=== PATIENT | female | born 1995 | race Hispanic/Latino ===

== ENCOUNTER 2018-10-29 07:31 | Day surgery (SDC) | payer MEDICAID ==
[2018-10-26 11:00] VITALS: BP 98/66
[2018-10-26 11:18] LABS: BASOPHILS % (AUTO) 0.8 % (0.0-5.0); EOSINOPHILS % (AUTO) 2.5 % (0.0-8.0); HEMATOCRIT 41.1 % (36-48); LYMPHOCYTES % (AUTO) 34.8 % (21.0-51.0); MEAN CORPUSCULAR HEMOGLOBIN 29.5 pg (27.0-33.0); MEAN CORPUSCULAR HGB CONC 33.7 g/dL (32.0-36.0); MEAN CORPUSCULAR VOLUME 87.8 fL (79-99); NEUTROPHILS % (AUTO) 52.9 % (40.0-77.0); NUCLEATED RED BLOOD CELLS 0.1 % (0.0-0.19); PLATELET COUNT (AUTO) 250 K/uL (130-400); RED BLOOD CELL COUNT(AUTO) 4.69 MIL/uL (4.00-5.50); RED CELL DISTRIBUTION WIDTH 14.3 % (11.0-15.5); WHITE BLOOD COUNT (AUTO) 5.3 K/uL (4.8-10.8)
[~2018-10-29] VITALS: Ht 149.9 cm; Wt 47.4 kg
[2018-10-29] VITALS (16 sets, daily range): BP systolic 103–147; BP diastolic 61–88
[2018-10-29] MEDS ORDERED: LACTATED RINGERS 1000ML 1,000 ML IV ONE (07:57)
[2018-10-29] MEDS ORDERED: SUCCINYLCHOLINE 200MG/10ML SYR ONE (08:42)
[2018-10-29] MEDS ORDERED: ROCURONIUM 10MG/1ML SYR 10 MG/ML ML ONE (08:42)
[2018-10-29] MEDS ORDERED: FENTANYL CITRATE PF 50 MCG/1 ML 2ML VIAL ONE (08:42)
[2018-10-29] MEDS ORDERED: LIDOCAINE PF 2% 5ML ABBOJECT ONE (08:42)
[2018-10-29] MEDS ORDERED: PROPOFOL 10 MG/ML 20ML VIAL IV ONE (08:42)
[2018-10-29] MEDS ORDERED: NEOSTIGMINE 5MG/5ML SYR IV ONE (09:10)
[2018-10-29] MEDS ORDERED: GLYCOPYRROLATE 1 MG/5 ML SYRINGE ONE (09:10)
[2018-10-29] MEDS ORDERED: ONDANSETRON HCL 4 MG/2 ML VIAL ONE (09:10)
[2018-10-29] MEDS ORDERED: ESMOLOL HCL 10 MG/ML 10 ML VIAL ONE (09:31)
[2018-10-29] MEDS ORDERED: MEPERIDINE-PF 25 MG/ML SYG ONE ×2 (09:53→10:07)
[2018-10-29] MEDS ORDERED: MORPHINE SULFATE 2 MG/ML 1ML SYG ONE (10:24)
--- NOTE | 2018-10-29 10:55 | NUR ---
PATIENT RECEIVED PT FROM PACU S/P LAP BTL. BANDAIDS X 2 TO LOWER ABDOMEN AREA DRY AND INTACT, VS STABLE ON ARRIVAL. PT SEEMED "DROWSY, AWAKE ORIENTED X 3,
--- NOTE | 2018-10-29 11:25 | NUR ---
dc dc instructions given to pt's mother with rx, instructed to f/u with dr. Guerra. on new med regimen and possible side effects. verbalized understanding. pt awake and alert, " im sleepy" , seems drowsy. pt voided in pacu 200 ml as per Tc RN.
--- NOTE | 2018-10-29 11:40 | NUR ---
DC PT DC HOME VIA WC, NO DISTERSS NOTED. ACCOMPANIED BY MOTHER
== END 2018-10-29 11:40 | disposition home or self-care (01) ==
LOC: DAH 07:31
PROVIDERS: ATTEND Specialist
DX: Z30.2 Encounter for sterilization (principal); Z98.890 Other specified postprocedural states; Z79.899 Other long term (current) drug therapy
CPT/HCPCS: 36415 ×2; 58671; 84703; 85025; 86850 ×2; 86900 ×2; 86901 ×2; A4215; A4264; A4351; A4930; C1769 ×2; J0330; J2001; J2175 ×2; J2405; J2704; J2710; J3010; J3490 ×2; J7120 ×2